=== PATIENT | female | born 1990 | race Caucasian/White ===

== ENCOUNTER 2022-07-04 12:22 | Outpatient (CLI) | payer OTHER, SELFPAY ==
--- NOTE | 2022-07-04 | ECG_ITS ---
Measurements Intervals [place] Rate: 66 P: 24 ID: [id number] QRS: 26 QRSD: 90 T: 34 QT: 381 QTc: 401 Interpretive Statements SINUS RHYTHM NORMAL ECG NO PREVIOUS ECG AVAILABLE FOR COMPARISON Electronically Signed On 07-04-2022 13:10:37 CDT by Judah Marie D.O.
== END 2022-07-04 12:23 | disposition home or self-care (01) ==
LOC: ANHCARD 12:29
PROVIDERS: Visit Provider Nurse Practitioner
DX: E66.9 Obesity, unspecified (principal)
CPT/HCPCS: 93005